=== PATIENT | male | born 1960 | race Caucasian/White ===

== ENCOUNTER 2024-07-28 09:16 | Outpatient (RCR) | payer OTHER, SELFPAY ==
--- NOTE | 2024-07-29 05:57 | CTCCONSULT_ITS ---
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 Patient states that he was f ollowing with Dr. Salcedo and was checked to have iron deficiency. He has multiple investigation pro cedures done and was never found to have a bleeding source but suspected of having bleeding. Patient to take iron but it does not help him much. He was told that he does not absorb iron effici ently. 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 GI: No nausea, vomiting, diarrhea or constipation. CVS: No palpitations or angina pains. Respiratory: No cough, chest pain or shortness of breath. VITAL SIGNS: Date Time PHYSICAL EXAMINATION: Conjunctivae is white. Oral cavity is dry. Chest is clear to auscultation. No wheezes or rales audible. CVS: Rhythm regular, no murmurs or gallops present. Abdomen is soft. No hepatosplenomegaly. Extremities: No pedal edema or cyanosis. LABORATORY DATA: Date Time ASSESSMENT: Iron deficiency anemia PLAN: ??Will get ferritin iron studies reticulocyte count LDH haptoglobin Will get B12 folic acid level Patient's last B12 is on the low normal level Will start patient on IV iron Will start on sublingual B12 ORDERS: Labs ordered include iron studies and nutritional check for B12 and folic acid Advised patient to do labs about 4 to 6 weeks after the iron infusion RTC after the lab check in 4 to 6 weeks after the last iron infusion RETURN TO CLINIC: cc: PCP, Referring: Dayton Low Electronically Signed {Object.Sanct_Date} at {Object.Sanct_Time} {Object.Sanct_ID*PnP.NameFL@M}, {Object.Sanct_ID*PnP.Suffix@U} Patient: FRANC ROBIN : 1960 MR#: [id number] Account: [id number] FOLLOW UP NOTE Page 2 of 4
== END 2024-08-22 23:59 | disposition home or self-care (01) ==
LOC: SCTC 09:16
PROVIDERS: PCP Internal Medicine; Referring Provider Internal Medicine; Visit Provider Internal Medicine Hematology & Oncology
DX: D50.9 Iron deficiency anemia, unspecified (principal)
CPT/HCPCS: 99213; G0463

== ENCOUNTER → 2024-08-26 | Outpatient (CLI) | payer OTHER, SELFPAY ==
[2024-08-26 14:32] LABS: Basophils # (Auto) 0.1 Thou/mm3 (0.0-0.2); Basophils % (Auto) 1 % (0-2.5); Eosinophils # (Auto) 0.3 Thou/mm3 (0.0-0.5); Eosinophils % (Auto) 3 % (0-10); Hematocrit 44.9 % (41.0-53.0); Hemoglobin 15.1 g/dL (13.5-16.0); Immature Granulocytes % (Auto) 0 % (0-0); Immature Granulocytes Auto 0.02 Thou/mm3 (0.00-0.00); Immature Reticulocyte Fraction 11.3 % (2.3-13.4); Lymphocytes # (Auto) 1.7 Thou/mm3 (1.0-4.8); Lymphocytes % (Auto) 21 % (10-50); Mean Corpuscular HGB Conc 33.6 g/dl (31.0-37.0); Mean Corpuscular Hemoglobin 29.2 pg (25.0-35.0); Mean Corpuscular Volume 87 fL (80-100); Monocytes # (Auto) 0.7 Thou/mm3 (0.0-0.8); Monocytes % (Auto) 8 % (0-12); Neutrophils # (Auto) 5.5 Thou/mm3 (1.8-7.7); Neutrophils % (Auto) 67 % (37-80); Nucleated Red Blood Cell % 0 /100 WBC (0); Platelet Count 205 Thou/mm3 (140-440); RDW Standard Deviation 39.8 fL (35.1-43.9); Red Blood Count 5.17 Miln/mm3 (4.50-5.90); Reticulocyte % (Auto) 1.8 % (0.5-1.5); Reticulocyte Absolute Auto 90.5 Biln/L (25.0-75.0); Reticulocyte Hgb Content 33.4 pg (28.0-35.0); White Blood Count 8.3 Thou/mm3 (3.8-10.6)
[2024-08-26 14:51] LABS: LDH (Lactate Dehydrogenase) 186 U/L (120-246)
[2024-08-26 14:55] LABS: Ferritin 11 ng/mL (10.5-307.3); Total Iron Binding Capacity 350 mcg/dL (250-425)
[2024-08-26 14:56] LABS: Folate 12.73 ng/mL (>5.38); Vitamin B12 501 pg/mL (211-911)
[2024-08-26 15:05] LABS: Iron 55 mcg/dL (65-175); Percent Iron Saturation 15 % (20-55); Unsaturated Iron Binding 295 (225-295)
[2024-09-03 06:55] LABS: Haptoglobin* 169 mg/dL (43-212)
== END | disposition home or self-care (01) ==
LOC: SCTO 13:11
PROVIDERS: PCP Internal Medicine; Referring Provider Internal Medicine Hematology & Oncology; Visit Provider Internal Medicine Hematology & Oncology
DX: D50.9 Iron deficiency anemia, unspecified (principal)
CPT/HCPCS: 36415; 82607; 82728; 82746; 83010; 83540; 83550; 83615; 85025; 85046

== ENCOUNTER 2024-09-21 13:25 | Outpatient (RCR) | payer OTHER, SELFPAY | END 2024-09-22 23:59 | disposition home or self-care (01) | LOC: SCTC 13:25 | PROVIDERS: PCP Internal Medicine; Referring Provider Internal Medicine; Visit Provider Internal Medicine Hematology & Oncology | DX: D50.9 Iron deficiency anemia, unspecified (principal) | CPT/HCPCS: 96365; 96366; 96375; J2919; J3490; Q0138 ==

== ENCOUNTER → 2025-03-24 | Outpatient (CLI) | payer OTHER, SELFPAY ==
--- NOTE | 2025-03-24 08:32 | XR_ITS ---
Examination: Shoulder,left, 3 views Technique: Shoulder AP internal rotation, AP external rotation, Y view shoulder, 3 views Exam date and time :March 24, 2025 0845 hours INDICATIONS: Left shoulder pain one year. FINDINGS: Prominent osteopenia. Moderate to advanced narrowing glenohumeral joint No shoulder fracture or dislocation IMPRESSION: Moderate to advanced narrowing glenohumeral joint
== END | disposition home or self-care (01) ==
LOC: CDIM 08:13
PROVIDERS: PCP Internal Medicine; Referring Provider Internal Medicine; Visit Provider Internal Medicine
DX: M25.812 Other specified joint disorders, left shoulder (principal)
CPT/HCPCS: 73030

== ENCOUNTER → 2025-06-24 | Outpatient (CLI) | payer OTHER, SELFPAY ==
--- NOTE | 2025-06-24 13:00 | XR_ITS ---
MRI shoulder, left, without contrast. Date and time: June 24 2025, 1409 hours INDICATIONS: Left shoulder pain beginning August 2023 Technique: Multiple axial, sagittal and coronal sections of the shoulder have been obtained. Siemens high-resolution 1.5 Jo MRI scanner is utilized. Axial fat-suppressed sections, TR 2350, TE 18 T2-weighted coronal fat-saturated images, TR 3500, TE 7100 T1-weighted coronal images, TR 500, TE 15 T2-weighted sagittal fat-saturated images, TR 3500, TE 57 T1-weighted sagittal sections, TR 504, TE 13. Findings: Supraspinatus tendon insertion is intact. Infraspinatus tendon insertion is intact. Subscapularis insertion is intact. Subscapularis bursa is mild. Long head of the biceps is in the bicipital groove. No definite tear of the biceps superior labral anchor is seen. Retraction of the musculotendinous junction of the rotator cuff is not seen . Tendinosis pattern is moderate. Distance between the acromium and humeral head is 2.7 mm Atrophy of the supraspinatus muscle is moderate. Atrophy of the infraspinatus muscle is mild. Sagittal sections demonstrate a horizontal acromion. Acromioclavicular joint demonstrates mild osteoarthritis . Osacromiale is not identified. Fraying and irregularity anterior superior posterior labral margins. Bony glenoid fossa on the sagittal sections does not demonstrate osseous defect. Occult fracture or area of avascular necrosis is not seen. Acromioclavicular joint separation is not visible. Defect in the posterolateral margin of the humeral head is not seen Impression: Rotator cuff intact Significant rotator cuff impingement syndrome Fraying and irregularity anterior superior labral margins
== END | disposition home or self-care (01) ==
LOC: SMRI 12:47
PROVIDERS: PCP Internal Medicine; Referring Provider Internal Medicine; Visit Provider Internal Medicine
DX: M75.102 Unspecified rotator cuff tear or rupture of left shoulder, not specified as traumatic (principal); M25.812 Other specified joint disorders, left shoulder
CPT/HCPCS: 73221

== ENCOUNTER 2025-08-16 14:44 | Inpatient (IN) | payer OTHER, SELFPAY ==
[2025-08-16] VITALS (7 sets, daily range): BP systolic 103–141; BP diastolic 69–85; PULSE 80–119; RESP 17–99; TEMP 36.4–36.8; O2SAT 95–100; BMI 22.1; BMI 22.2
--- NOTE | 2025-08-16 15:29 | XR_ITS ---
Examination: CT abdomen and pelvis without contrast. Coronal 3-D reconstructions. Sagittal 2-D reconstructions. Date and time of exam: August 16, 2025, 1629 hours INDICATIONS: Vomiting blood today CTDI: vol (mGy): 6.91 DLP: (mGycm): 393 Technique: Axial images of the abdomen have been obtained, 3 mm slice thickness Intravenous contrast material has not been administered. Low dose protocols were performed. One or more of the following dose reduction techniques were used; automated exposure control, adjustment of the mA and/or KV according to patient size, use of iterative reconstruction technique. Findings: Large retrocardiac gastric hernia No visualized liver or splenic lesion Tiny gallstones No pancreatic mass or peripancreatic edema Normal adrenal glands Multiple bilateral renal calculi, the largest left kidney 6 mm the largest right kidney 5 mm No hydronephrosis or ureteral calculi Aortic calcification no aneurysmal dilatation 14 mm fat-containing umbilical hernia No pericecal inflammatory change No significant prostatomegaly Intact urinary bladder Normal appendix IMPRESSION: Limited noncontrast study Cholelithiasis, consider hepatobiliary sonography follow-up No definite extrahepatic biliary tract dilatation Negative for pancreatitis Bilateral nonobstructing renal calculi 14 mm fat-containing umbilical hernia Normal appendix No bowel obstruction or diverticulitis
--- NOTE | 2025-08-16 15:29 | PD.EDRME ---
Rapid Medical Screening Exam RME Arrival date/time: 08/16/25 14:44 This is a case of 65-year-old male with history of gastritis came in in the emergency room due due to vomiting of blood worsening of the symptoms this patient decided to start consult here in the emergency room Chief Complaint: Nausea/Vomiting/Diarrhea Time Seen by Provider: 08/16/25 14:46 Vital signs: Vital Signs Temperature 98.3 F 08/16/25 15:24 Pulse Rate 90 08/16/25 15:24 Respiratory Rate 17 08/16/25 15:24 Blood Pressure 141/85 H 08/16/25 15:24 Pulse Oximetry (%) 95 08/16/25 15:24 Oxygen Delivery Method Room Air 08/16/25 15:24 Exam: Abdominal exam benign nonsurgical no guarding no rebound no rigidity mild tenderness on the epigastric Clinical Impression: abdominal pain vomiting of blood
[2025-08-16 16:00] LABS: Basophils # (Auto) 0.1 Thou/mm3 (0.0-0.2); Basophils % (Auto) 1 % (0-2.5); Eosinophils # (Auto) 0.2 Thou/mm3 (0.0-0.5); Eosinophils % (Auto) 2 % (0-10); Hematocrit 34.8 % (41.0-53.0); Hemoglobin 11.4 g/dL (13.5-16.0); Immature Granulocytes Auto 0.04 Thou/mm3 (0.00-0.00); Lymphocytes # (Auto) 1.7 Thou/mm3 (1.0-4.8); Lymphocytes % (Auto) 13 % (10-50); Mean Corpuscular HGB Conc 32.8 g/dl (31.0-37.0); Mean Corpuscular Hemoglobin 28.0 pg (25.0-35.0); Mean Corpuscular Volume 86 fL (80-100); Monocytes # (Auto) 1.0 Thou/mm3 (0.0-0.8); Monocytes % (Auto) 8 % (0-12); Neutrophils # (Auto) 9.6 Thou/mm3 (1.8-7.7); Neutrophils % (Auto) 76 % (37-80); Nucleated Red Blood Cell # 0.00 Thou/mm3 (0.00-0.00); Nucleated Red Blood Cell % 0 /100 WBC (0); Platelet Count 298 Thou/mm3 (140-440); RDW Standard Deviation 41.7 fL (35.1-43.9); Red Blood Count 4.07 Miln/mm3 (4.50-5.90); White Blood Count 12.7 Thou/mm3 (3.8-10.6)
[2025-08-16 16:26] LABS: Collection Type, Urine Clean Catch; Squamous Epithelial Cell,Urine 0 /hpf (0-5)
[2025-08-16 16:52] LABS: Anion Gap 10 (7-16); Blood Urea Nitrogen 27 mg/dL (9-23); Carbon Dioxide 21.8 mMol/L (20.0-31.0); Chloride 108 mMol/L (98-107); Creatinine (Component) 1.0 mg/dL (0.6-1.3); Potassium 4.0 mMol/L (3.4-5.1); Sodium 140 mMol/L (136-145)
[2025-08-16 16:53] LABS: Alanine Aminotransferase 17 U/L (10-49); Albumin, Serum 4.5 gm/dL (3.4-4.8); Alkaline Phosphatase 106 U/L (46-116); Aspartate Amino Transferase 22 U/L (0-34); BUN/Creatinine Ratio 27 Ratio (12-20); Bilirubin,Total 0.6 mg/dL (0.3-1.2); Calcium 8.9 mg/dL (8.3-10.6); Calcium (Corrected) 8.9 mg/dL (8.5-10.1); Estimated Creatinine Clearance 74.9 mL/min (>60); Glucose 125 mg/dL (74-106); Lipase 26 U/L (12-53); Osmolality,Calculated 285 (275-295); eGFR > 60 See Note
[2025-08-16 17:16] LABS: Bilirubin,Urine Negative (Negative); Blood,Urine Negative (Negative); Clarity,Urine Clear (Clear/Hazy); Color,Urine Lt-Yellow (Lt Yel-Yel); Glucose, Urine Negative (Negative); Ketones,Urine Trace (Negative); Leukocyte Esterase,Urine Negative (Negative); Nitrite,Urine Negative (Negative); PH,Urine 5.5 (5.0-7.0); Protein,Urine Negative (Neg - Trace); RBC,Urine 1 /hpf (0-3); Specific Gravity,Urine 1.025 (1.001-1.035); Urobilinogen,Urine Negative mg/dL (0.0-1.0); WBC,Urine < 1 /hpf (0-5)
[2025-08-16 17:27] LABS: Albumin/Globulin Ratio 2.1 (1.2-2.2); Globulin 2.1 gm/dL (2.3-3.5); Total Protein 6.6 gm/dL (5.7-8.2)
--- NOTE | 2025-08-16 19:32 | EDNOTE_ITS ---
Nausea/Vomit./Diarrhea-RME/HPI General Chief complaint: Nausea/Vomiting/Diarrhea Stated complaint: VOMITING BLACK, STOOL BLACK Time Seen by Provider: 08/16/25 14:46 Arrival date/time: 08/16/25 14:44 RME / HPI RME / HPI Narrative: 08/16/25 14:44 This is a case of 65-year-old male with history of gastritis came in in the emergency room due due to vomiting of blood worsening of the symptoms this patient decided to start consult here in the emergency room Dr. Gonzalez?[facility] Main ED Evaluation: 65yo male with a history of CAD s/p 5 stents, CVA, MO, HTN, HLD, celiac disease, iron deficiency anemia presents to the ED for complaints of black vomiting and stools since last night. Patient reports feeling lightheaded when he stands up and more fatigued than normal. Patient was seen at the ED in [place] this morning and was going to be transferred to a higher [id number] due to not having GI services, but since the patient was stable, left and drove back here today to come in for further evaluation. Patient denies any fever, chills, or any other associated symptoms. NKA. Related Data Home Medications ?Medication ?Instructions ?Recorded ?Confirmed aspirin 81 mg tablet,delayed 81 mg PO QDAY 03/29/20 release atorvastatin 80 mg tablet 80 mg PO QDAY 03/29/2007/13 ezetimibe 10 mg tablet 10 mg PO QDAY 03/29/2007/13 metoprolol succinate 25 mg 25 mg PO QDAY 03/29/2006/24 tablet,extended release 24 hr topiramate 25 mg tablet 25 mg PO HS 03/29/20 2 Previous Rx's ?Medication ?Instructions ?Recorded pantoprazole 40 mg tablet,delayed 40 mg PO QDAY #30 ta bs 04/02/20 release Allergies Allergy/AdvReac Type Severity Reaction Status Date / Time No Known Allergies Allergy Verified 08/16/25 14:49 Review of Systems Review of Systems Systems Reviewed: All systems reviewed, normal except as documented Past Medical History Past Medical History NEUROLOGIC: Positive Cerebrovascular Accident (2017) and Migraine; Negative Seizures CARDIAC: Positive Myocardial Infarction; Negative Congestive Heart Failure RESPIRATORY: Positive Bronchitis; Negative Chronic Obstructive Pulmonary Disease (COPD) GASTROINTESTINAL: Positive Celiac Disease, Gastrointestinal Bleed and Gastroesophageal Reflux Disease GENITOURINARY: Negative Genitourinary Disorders or Renal Disease MUSCULOSKELETAL: Negative Musculoskeletal Disorders ENDOCRINE: Negative Diabetes Mellitus Type 1 or Diabetes Mellitus Type 2 HEMATOLOGIC: Positive Anemia OTHER HISTORY: Positive Blood Transfusions; Negative Blood Transfusion Reaction or Anesthesia Reactions Surgical History SURGICAL: Positive Coronary Stent Social History SMOKING STATUS: Never smoker SUBSTANCE USE: does not use ED Exam Narrative Physical exam: Generally patient is alert appearing younger than stated age but no obvious distress, heart regular rate and rhythm, lungs clear to auscultation equal bilaterally, abdomen soft bowel sounds present nondistended epigastric abdominal tenderness without rebound, skin is cool pale and dry, neurologic exam shows [place] Coma Scale of 15 Course Quality Measures none Orders Category Date Time Status EKG (ED ONLY) *Do not use* NOW Care 08/16/25 19:[address] abdomen pelvis wo con Stat Exams 08/16/25 15:29 Completed EKG (ED Only) Stat Exams 08/16/25 19:43 Draft CBC Stat Lab 08/16/25 15:32 Completed Comprehensive Metabolic Panel Stat Lab 08/16/25 15:32 Completed Lipase Stat Lab 08/16/25 15:32 Completed Troponin I Stat Lab 08/16/25 15:32 Completed Urinalysis Stat Lab 08/16/25 16:10 Completed Pantoprazole Inj [Protonix Inj] Med 08/16/25 20:53 Once 40 mg IVP X1 ONE Vital Signs Vital signs: Vital Signs Temperature 98.3 F 08/16/25 15:24 Pulse Rate 90 08/16/25 15:24 Respiratory Rate 17 08/16/25 15:24 Blood Pressure 141/85 H 08/16/25 15:24 Pulse Oximetry (%) 95 08/16/25 15:24 Oxygen Delivery Method Room Air 08/16/25 15:24 Nausea/Vomiting/Diarrhea MDM Narrative MDM Narrative:: Scribe Attestation: 08/16/25 Nhung Hendrickson am scribing for and in the presence of Dr. Gonzalez. Patient had a rectal exam which was reportedly guaiac positive at an outside hospital today. Hemoglobin at that outside hospital today was 10. Today it is 11.4. Platelet count is normal. Patient has a history of a bleeding gastric ulcer and gastritis in the past. Hemoglobin is lower tonight than when it was approximately 11 months ago. I discussed this case with Dr. Irving who wishes for the patient to be admitted for the upper GI bleed. Patient does have a history of coronary artery disease with multiple stents. He is off of the aspirin at this time. EKG showed normal sinus rhythm at a rate of 92 with Q waves in the septal leads as well as in leads III and aVF. Troponin is not elevated. Patient was given Protonix 40 mg IV. Case was discussed with the hospitalist. Patient data External records reviewed:: [facility] previous records (Per chart review, patient was admitted here on 07/13/22 for STEMI.) Clinical information provided by:: patient Social determinants that could affect healthcare access:: none Patient has the following chronic illnesses:: CAD s/p 5 stents, CVA, MO, HTN, HLD, celiac disease, iron deficiency anemia How is presenting disease/condition affected by chronic disease/condition?: uneffected by Evaluation data The following diagnostics were reviewed and interpreted by me:: lab results and radiology exam(s) Lab and/or radiology exams considered but not ordered:: none Interpretation Summary: [facility] Report Signed Patient: FRANC ROBIN. Record#: [id number] Birthdate: 1960 Age/Sex: 65 / M Location: [facility] Attending Dr: Ordering Physician: Sejal Hankins Date of Service: 08/16/25 Procedure(s): CT abdomen pelvis wo con Accession Number(s): [id number] cc: Dayton Low MD; Castro Gauthier MD; Sejal Hankins~ Examination: CT abdomen and pelvis without contrast. Coronal 3-D reconstructions. Sagittal 2-D reconstructions. Date and time of exam: August 16, 2025, 1629 hours INDICATIONS: Vomiting blood today CTDI: vol (mGy): 6.91 DLP: (mGycm): 393 Technique: Axial images of the abdomen have been obtained, 3 mm slice thickness Intravenous contrast material has not been administered. Low dose protocols were performed. One or more of the following dose reduction techniques were used; automated exposure control, adjustment of the mA and/or KV according to patient size, use of iterative reconstruction technique. Findings: Large retrocardiac gastric hernia No visualized liver or splenic lesion Tiny gallstones No pancreatic mass or peripancreatic edema Normal adrenal glands Multiple bilateral renal calculi, the largest left kidney 6 mm the largest right kidney 5 mm No hydronephrosis or ureteral calculi Aortic calcification no aneurysmal dilatation 14 mm fat-containing umbilical hernia No pericecal inflammatory change No significant prostatomegaly Intact urinary bladder Normal appendix IMPRESSION: Limited noncontrast study Cholelithiasis, consider hepatobiliary sonography follow-up No definite extrahepatic biliary tract dilatation Negative for pancreatitis Bilateral nonobstructing renal calculi 14 mm fat-containing umbilical hernia Normal appendix No bowel obstruction or diverticulitis Dictated By: Castro Gauthier MD Signed By: <Electronically signed by Castro Gauthier MD in OV> 08/16/25 1712 Medications / Prescriptions Medications / Prescriptions considered but not ordered:: none Medication administrations:: Medication Administration History Pantoprazole Sodium (Pantoprazole Inj 40 Mg Vial) 40 mg IVP X1 ONE Stop: 08/16/25 20:54 see above, if any Consultations Consultation(s) initiated? (list below): Yes Diagnosis Nausea Differential Diagnosis: other (See MDM) Most likely diagnosis given after review of the tests above:: see clinical impression below Admission Indicated Admission indicated?: indicated Admission Request Was there a request for admission?: Yes Admission Attestation Admission request attestation: Discussed case with [] from Hospitalist service regarding admission. Discussed patients ED course, exam findings, labs, and radiology results. The Hospitalist [agrees,declines] to accept the patient for admission. Disposition Plan Disposition Plan: Admit Discharge Plan Plan Patient Disposition: Admit Acute Care w/in Hospital Prescriptions/Referrals Prescriptions/Med Rec: No Action atorvastatin 80 mg tablet 80 mg PO QDAY Patient Comments: TAKE 1 TABLET BY MOUTH EVERY DAY topiramate 25 mg tablet 25 mg PO HS Patient Comments: TAKE 1 TABLET BY MOUTH EVERY DAY aspirin 81 mg tablet,delayed release (DR/EC) 81 mg PO QDAY Patient Comments: TAKE 1 TABLET BY MOUTH EVERY DAY metoprolol succinate 25 mg tablet extended release 24 hr 25 mg PO QDAY Patient Comments: TAKE 1 TABLET BY MOUTH EVERY DAY ezetimibe 10 mg tablet 10 mg PO QDAY Patient Comments: TAKE 1 TABLET BY MOUTH EVERY DAY pantoprazole 40 mg Tablet,Delayed Release (Dr/Ec) 40 mg PO QDAY Qty: 30 0RF Referrals: Dayton Low MD [Primary Care Provider] - In 1 week Problem List Clinical Impression: UGIB (upper gastrointestinal bleed), History of CAD (coronary artery disease) Patient/Caregiver Discharge Instructions Print Language: [place] Islander Stand Alone Forms: Becki Award Info., Patient Portal Info Letter
--- NOTE | 2025-08-16 19:43 | EKG_ITS ---
[facility] Test Date: 2025-08-16 Pat Name: FRANC ROBIN Department: Room: - Gender: Male [employer]: : 1960 Requested By: Jonas Chavez Order Number: [id number] Reading MD: Jonas Chavez Measurements Intervals [place] Rate: 92 P: 38 IL: 169 QRS: -18 QRSD: 93 T: 29 QT: 332 QTc: 413 Interpretive Statements SINUS RHYTHM SEPTAL MYOCARDIAL INFARCTION , PROBABLY OLD [40+ ms Q WAVE IN V1/V2] INFERIOR MYOCARDIAL INFARCTION , OF INDETERMINATE AGE [40+ ms Q WAVE AND/OR ST/T ABNORMALITY IN II/aVF] Compared to ECG 07/13/2022 11:58:38 Short [place] interval no longer present Myocardial infarct finding still present /store/S0/[id number]/ecg/[id number].pdf
[2025-08-16 20:25] LABS: Troponin I < 0.020 ng/mL (0.0-0.045)
--- NOTE | 2025-08-16 21:41 | PD.IMCONS ---
HPI Data of Consult Primary Care Provider: Dayton Low MD Consult Narrative Reason for consult: Melena, coffee-ground hematemesis History of present illness: 65 years old male presented to the hospital with melanotic stools and also bout of hematemesis Patient does have a history of iron deficiency anemia and got an iron transfusion in the past and does have a history of bleeding peptic ulcer disease requiring endoscopic intervention No bright red bleeding per rectum patient does have a history of Coronary artery disease status post PCI cc:: cc: Review of Systems Review of Systems Systems Reviewed: All systems reviewed, normal except as documented Meds Home Medications and Allergies Home Medications ?Medication ?Instructions ?Recorded ?Confirmed ?Type aspirin 81 mg tablet,delayed 81 mg PO QDAY 03/29/20 07/13/22 History release atorvastatin 80 mg tablet 80 mg PO QDAY 03/29/20 07/13/22 History ezetimibe 10 mg tablet 10 mg PO QDAY 03/29/20 07/13/22 History metoprolol succinate 25 mg 25 mg PO QDAY 03/29/20 07/13/22 History tablet,extended release 24 hr topiramate 25 mg tablet 25 mg PO HS 03/29/20 07/13/22 History Allergies Allergy/AdvReac Type Severity Reaction Status Date / Time No Known Allergies Allergy Verified 08/16/25 14:49 Exam Vital Signs Temp Pulse Resp BP Pulse Ox O2 Del Method 97.5 F 99 19 118/78 99 Room Air 08/16/25 20:08 08/16/25 20:08 08/16/25 20:08 08/16/25 20:08 08/16/25 20:08 08/16/25 19:16 Constitutional Comments: Alert oriented Routine Respiratory Exam Comments: Normal to auscultation Routine Abdominal Exam Comments: Soft nontender Results Labs 08/16/25 15:32 08/16/25 15:32 Labs: Short CBC 08/16/25 Range/Units 15:32 WBC 12.7 H (3.8-10.6) Thou/mm3 Hgb 11.4 L (13.5-16.0) g/dL Hct 34.8 L (41.0-53.0) % Plt Count 298 (140-440) Thou/mm3 BMP 08/16/25 15:32 Sodium 140 Potassium 4.0 Chloride 108 H Carbon Dioxide 21.8 BUN 27 H Creatinine 1.0 Glucose 125 H Calcium 8.9 Cardiac Enzymes 08/16/25 Range/Units 15:32 Troponin I < 0.020 (0.0-0.045) ng/mL Liver Function 08/16/25 Range/Units 15:32 Total Bilirubin 0.6 (0.3-1.2) mg/dL AST 22 (0-34) U/L ALT 17 (10-49) U/L Alkaline Phosphatase 106 (46-116) U/L Albumin 4.5 (3.4-4.8) gm/dL Urine 08/16/25 Range/Units 16:10 Urine Color Lt-Yellow (Lt Yel-Yel) Urine Clarity Clear (Clear/Hazy) Urine pH 5.5 (5.0-7.0) Ur Specific [place] 1.025 (1.001-1.035) Urine Protein Negative (Neg - Trace) Urine Glucose (UA) Negative (Negative) Assessment and Plan Additional Assessment & Plan Additional Plan: # Acute GI bleed in the form of melena and possible hematemesis Chronic history of iron deficiency anemia with a previous history of GI bleed from peptic ulcer disease requiring intervention Suggestions Serial CBC IV Protonix Consent obtained for fiberoptic esophagogastroduodenoscopy with possible biopsy possible therapeutic intervention under intravenous moderate sedation scheduled for tomorrow Clear liquid diet till 10 AM tomorrow then n.p.o. Other medical problems include coronary artery disease status post PCI hyperlipidemia thank you very much for the opportunity to participate in the care of this patient
--- NOTE | 2025-08-16 22:14 | PD.RESHP ---
Documentation for date of: 08/16/25 [facility] History of Present Illness Chief complaint: vomiting blood History of present illness: Sterling Jensen is 65 yr male with PMH of CAD s/p 5 stents (2016, 2020), migraines, two ischemic stroke 2016, HTN, HLD, celiac disease, iron deficiency anemia, previous GI bleed presenting to ED due to coffee ground emesis. Patient's was at bedside. Family was taking a trip in [facility] yesterday when he had one episode of projectile vomiting coffee ground emesis along with melena. Endorses a similar episode like this last month. Family initially went to [facility]. However, was not admitted due to lack of GI services. His Hb at that time was around 10. He has been feeling weak, decreased appetite and water intake past few days. Patient sees Dr. Izaguirre who stopped Plavix in 2021. Currently just on aspirin for blood thinner in setting of his CAD and stroke. Also saw Dr. Ornelas in 07/2024 for IV iron put does not appear to be on any oral supplements. In ED, he was tachycardic 119 but improved with fluids. Other vitals stable. WBC 12.7, Hb 11.5 (baseline around 9.5), MCV 86. BUN 27, Cr 1.0. Troponins negative, EKG sinus rhytm with rate 92. CT A/P benign. GI was consulted. Patient admitted for mgmt upper GI bleed. PMH: as noted above PSH: unspecified GI procedure with EGD Famhx: father from stroke, mother with skin cancer from unknown cause. Brother has prostated cancer in remission. Social: lives in [place] with , denies smoking, denies drinking Allergies: NKDA Meds: aspirin 81 mg daily, atorvastatin 80 daily, ezetimibe 10mg HS, metoprolol succinate 25mg, nitro prn, topiramate 25mg, Fioricet Review of Systems Review of Systems Systems Reviewed: All systems reviewed, normal except as documented Exam Vital Signs Temp Pulse Resp BP Pulse Ox O2 Del Method 98.1 F 80 18 111/72 100 Room Air 08/16/25 21:58 08/16/25 21:58 08/16/25 21:58 08/16/25 21:58 08/16/25 21:58 08/16/25 21:58 Narrative Exam General: Alert and oriented x3. No acute distress, cooperative HEENT: NCAT, No JVD noted. Mucosa dry. Pupils are equal and reactive to light bilaterally Cardiovascular: Normal S1 and S2. Tachycardic rate and rhythm. Respiratory: Lungs are clear to auscultation bilaterally. No wheezing or crackles heard. Abdomen: Soft, nontender, not distended, normal bowel sounds. Skin: Warm to touch, dry, no rashes noted Musculoskeletal: No gross injuries. Able to move all 4 extremities. No pitting edema Neuro: Alert and oriented x3. No focal neuro deficits. Psych: Normal affect and mood Results: Labs 08/16/25 15:32 08/16/25 15:32 Labs: Short CBC 08/16/25 Range/Units 15:32 WBC 12.7 H (3.8-10.6) Thou/mm3 Hgb 11.4 L (13.5-16.0) g/dL Hct 34.8 L (41.0-53.0) % Plt Count 298 (140-440) Thou/mm3 BMP 08/16/25 15:32 Sodium 140 Potassium 4.0 Chloride 108 H Carbon Dioxide 21.8 BUN 27 H Creatinine 1.0 Glucose 125 H Calcium 8.9 Cardiac Enzymes 08/16/25 Range/Units 15:32 Troponin I < 0.020 (0.0-0.045) ng/mL Liver Function 08/16/25 Range/Units 15:32 Total Bilirubin 0.6 (0.3-1.2) mg/dL AST 22 (0-34) U/L ALT 17 (10-49) U/L Alkaline Phosphatase 106 (46-116) U/L Albumin 4.5 (3.4-4.8) gm/dL Urine 08/16/25 Range/Units 16:10 Urine Color Lt-Yellow (Lt Yel-Yel) Urine Clarity Clear (Clear/Hazy) Urine pH 5.5 (5.0-7.0) Ur Specific [place] 1.025 (1.001-1.035) Urine Protein Negative (Neg - Trace) Urine Glucose (UA) Negative (Negative) Quality Measures Quality Measures VTE prophylaxis Medications Home Medications and Allergies Home Medications ?Medication ?Instructions ?Recorded ?Confirmed ?Type aspirin 81 mg tablet,delayed 81 mg PO QDAY 03/29/20 08/16/25 History release atorvastatin 80 mg tablet 80 mg PO HS 03/29/20 08/16/25 History ezetimibe 10 mg tablet 10 mg PO HS 03/29/20 08/16/25 History metoprolol succinate 25 mg 25 mg PO QDAY 03/29/20 08/16/25 History tablet,extended release 24 hr topiramate 25 mg tablet 25 mg PO HS 03/29/20 08/16/25 History nitroglycerin 0.4 mg sublingual 0.4 mg buccal [id number] PRN chest 08/16/25 08/16/25 History tablet pain Allergies Allergy/AdvReac Type Severity Reaction Status Date / Time No Known Allergies Allergy Verified 08/16/25 14:49 Visit Medications Acetaminophen (Acetaminophen 325 Mg Tablet) 650 mg PO Q6H PRN PRN Reason: Fever >100.4 or pain 1-3 Stop: 09/15/25 21:59 Sodium Chloride (Ns) 1,000 mls @ 100 mls/hr IV .Q10H KENNEDY Stop: 08/17/25 17:59 Ondansetron HCl (Ondansetron Inj 2 Mg/Ml Inj 2 Ml) 4 mg IVP Q6H PRN; Protocol PRN Reason: NAUSEA OR VOMITING Stop: 09/15/25 22:04 Pantoprazole Sodium (Pantoprazole Inj 40 Mg Vial) 40 mg IVP X1 ONE Stop: 08/16/25 22:06 Pantoprazole Sodium (Pantoprazole 40 Mg Tablet) 40 mg PO Q12HR KENNEDY Stop: 09/16/25 09:59 Sennosides (Senna Tablet) 1 tab PO QDAY PRN; Protocol PRN Reason: constipation Stop: 09/15/25 22:04 Discontinued Medications Pantoprazole Sodium (Pantoprazole Inj 40 Mg Vial) 40 mg IVP X1 ONE Stop: 08/16/25 20:54 Last Admin: 08/16/25 21:13 Dose: 40 mg Assessment & Plan Plan Sterling Jensen is 65 yr male with PMH of CAD s/p 5 stents (2016, 2020), migraines, two ischemic stroke 2016, HTN, HLD, celiac disease, iron deficiency anemia, previous GI bleed presenting to ED due to coffee ground emesis. He had similiar episode last month. GI was consulted. Admitting patient for mgmt of upper GI bleed. #Upper GI bleed #Hematemesis Has tachycardia and elevated urea supporting dx. One episode of projectile coffee ground emesis yesterday. Went to [facility] where Hb was around 10. No GI services were available so family came to [facility]. Hb 11.5 (baseline around 9.5), MCV 86, Hct 35. BUN 27, Cr 1.0. Decreased fluid and food intake since 2 days. Also endorses melena since 1-2 days. Currently on apirin for CAD/stroke hx. -GI consulted, appreciate recommendations -IV pantoprazole 40mg BID -IV fluids NS 2L maintainence -CLD for EGD tomorrow -ferritin levels -iron pannel -hold blood thinners -type and screen ordered -transfuse if Hb <8 (patient is high risk population due to CAD hx so cuttoff for Hb is 8) #CAD Follows with Dr. Izaguirre. Last stent was placed 1 year ago. Has total of 5 stents after two episodes of CT. Currently on aspirin, atorvastain, and ezetimibe 10mg. EKG sinus rhythm with rate 92. Troponins negative. -continue asa as noted above -lipid pannel -resume meds after EGD #Migraines No current complaint. Takes topiramate and Fioricet. [facility]. -resume as needed #Leukocytosis WBC 12.7. No infection source, no fever. Likely reactive in setting of GI bleed. -CTM #Previous CVA Ischemic stroke occured in 2017 while undergoing stent placement. No residual deficits. Takes atrovastatin 80mg and aspirin 81mg. -resume after EGD Health maintenance: Dispo: tele, EGD in AM FEN: CLD, npo at 10AM DVT prophylaxis: SCD CODE STATUS: Full code The patient's management plan was discussed with my attending physician Dr. Amanda. Heavenly Low, PGY-2 Attending Provider Attestation/Addendum After examination of the patient and review of the clinical data I feel that this patient needs admission to the hospital for further treatment/evaluation. Plan of care discussed with patient and is in agreement. I Janee Amanda MD, attest that I was physically present for beck portions of evaluation, and examined patient, labs and imagings and plan of care were discussed with IM residents team, and I agree with the findings and plans documented above.
[2025-08-16] MEDS: SODIUM CHLORIDE 0.9% 1000 ML 1,000 ML 100 ML IV (22:37)
[2025-08-17] VITALS (19 sets, daily range): BP systolic 90–139; BP diastolic 60–82; PULSE 68–92; RESP 10–99; TEMP 36.1–36.9; O2SAT 96–100
[2025-08-17 05:23] LABS: Basophils # (Auto) 0.1 Thou/mm3 (0.0-0.2); Basophils % (Auto) 2 % (0-2.5); Eosinophils # (Auto) 0.2 Thou/mm3 (0.0-0.5); Eosinophils % (Auto) 4 % (0-10); Hematocrit 27.3 % (41.0-53.0); Hemoglobin 8.9 g/dL (13.5-16.0); Immature Granulocytes Auto 0.03 Thou/mm3 (0.00-0.00); Lymphocytes # (Auto) 1.4 Thou/mm3 (1.0-4.8); Lymphocytes % (Auto) 21 % (10-50); Mean Corpuscular HGB Conc 32.6 g/dl (31.0-37.0); Mean Corpuscular Hemoglobin 28.0 pg (25.0-35.0); Mean Corpuscular Volume 86 fL (80-100); Monocytes # (Auto) 0.7 Thou/mm3 (0.0-0.8); Monocytes % (Auto) 11 % (0-12); Neutrophils # (Auto) 4.2 Thou/mm3 (1.8-7.7); Neutrophils % (Auto) 63 % (37-80); Nucleated Red Blood Cell # 0.00 Thou/mm3 (0.00-0.00); Nucleated Red Blood Cell % 0 /100 WBC (0); Platelet Count 207 Thou/mm3 (140-440); RDW Standard Deviation 41.9 fL (35.1-43.9); Red Blood Count 3.18 Miln/mm3 (4.50-5.90); White Blood Count 6.6 Thou/mm3 (3.8-10.6)
[2025-08-17 08:03] LABS: Alanine Aminotransferase 13 U/L (10-49); Albumin, Serum 3.5 gm/dL (3.4-4.8); Albumin/Globulin Ratio 2.1 (1.2-2.2); Anion Gap 12 (7-16); Aspartate Amino Transferase 19 U/L (0-34); BUN/Creatinine Ratio 24 Ratio (12-20); Bilirubin,Total 0.4 mg/dL (0.3-1.2); Blood Urea Nitrogen 19 mg/dL (9-23); Calcium 8.5 mg/dL (8.3-10.6); Calcium (Corrected) 8.9 mg/dL (8.5-10.1); Carbon Dioxide 21.1 mMol/L (20.0-31.0); Chloride 109 mMol/L (98-107); Creatinine (Component) 0.8 mg/dL (0.6-1.3); Estimated Creatinine Clearance 94.2 mL/min (>60); Globulin 1.7 gm/dL (2.3-3.5); Glucose 101 mg/dL (74-106); Magnesium 1.4 mg/dL (1.6-2.6); Osmolality,Calculated 285 (275-295); Phosphorous 3.0 mg/dL (2.4-5.1); Potassium 3.6 mMol/L (3.4-5.1); Sodium 142 mMol/L (136-145); Total Protein 5.2 gm/dL (5.7-8.2); eGFR > 60 See Note
[2025-08-17 08:32] LABS: Alkaline Phosphatase 81 U/L (46-116); Cardiac Risk Estimate 3.8 RATIO (4.0-6.7); Cholesterol 90 mg/dL (132-200); HDL Cholesterol 24 mg/dL (40-60); LDL Cholesterol,Calculated 32 mg/dL (0-130); Triglycerides 169 mg/dL (30-150)
--- NOTE | 2025-08-17 08:43 | ESPR_ITS ---
<Statement entered by Rahul Damon MD - 08/17/25 15:53> Patient seen and examined at bedside. I discussed and supervised with the electrical intern physician who took care of this patient. I personally saw and examined the patient. I agree with most of the assessment and plan. Pending EGD. Hemoglobin slightly downtrending, will monitor. Resumed appropriate home meds, holding aspirin. Plan of care discussed with attending Dr. Rahul Damon MD PGY-2 Documentation for date of: 08/17/25 Subjective Subjective Interval history: 75-year-old male with past medical history of CAD status post 5 stent (2016,? 2020), migraine, 2 ischemic stroke 2016, HTN, HLD, celiac disease, iron deficiency anemia, history of bleeding gastric ulcer, gastritis presents with coffee-ground emesis and melena.? Admitted for upper GI bleed workup. GI, Dr. Irving, consulted, appreciate recs: IV Protonix, clear liquid diet then n.p.o. for EGD today. Patient reported vomiting black substance and black stool Saturday night/early Saturday morning. Reported the same episode 1 month ago, PCP advised to return to ED if another episode happened. Patient reported was lightheaded with chest burning and elevated heart rate and palpitation yesterday morning. Patient fell a lot better, the symptoms resolved this morning. Reported history of following Dr. Irving outpatient in 2019 and switched to another GI in [place] and now back to [place]. Reported history of sclerotherapy for internal hemorrhoid in 2019, last bright red blood per rectum was last year. Per patient, history of ulcer in small intestine that required cauterization, Hgb was 4 at that time. Patient also reported a patient has been following Dr. Ma for 6 episodes of feraheme. Denied dizziness, headache, fever, chill, chest pain, palpitation. Exam Vital Signs Temp Pulse Resp BP Pulse Ox O2 Del Method 97.3 F 82 12 90/60 97 Room Air 08/17/25 04:00 08/17/25 04:00 08/17/25 04:00 08/17/25 04:00 08/17/25 04:00 08/17/25 04:00 Narrative Exam General: Alert and oriented x3. No acute distress, cooperative HEENT: NCAT, No JVD noted. Mucosa dry. Pupils are equal and reactive to light bilaterally Cardiovascular: Normal S1 and S2. Tachycardic rate and rhythm. Respiratory: Lungs are clear to auscultation bilaterally. No wheezing or crackles heard. Abdomen: Soft, nontender, not distended, normal bowel sounds. Skin: Warm to touch, dry, no rashes noted Musculoskeletal: No gross injuries. Able to move all 4 extremities. No pitting edema Neuro: Alert and oriented x3. No focal neuro deficits. Psych: Normal affect and mood Objective Labs 08/18/25 04:27 08/18/25 04:27 Labs: Laboratory Results - last 24 hr 08/16/25 08/16/25 08/17/25 15:32 16:10 01:01 WBC 12.7 H RBC 4.07 L Hgb 11.4 L Hct 34.8 L MCV 86 MCH 28.0 MCHC 32.8 RDW Std Deviation 41.7 Plt Count 298 Neut % (Auto) 76 Lymph % (Auto) 13 [place] % (Auto) 8 Eos % (Auto) 2 Baso % (Auto) 1 Neut # (Auto) 9.6 H Lymph # (Auto) 1.7 [place] # (Auto) 1.0 H Eos # (Auto) 0.2 Baso # (Auto) 0.1 Immature Gran # (Auto) 0.04 H Absolute Nucleated RBC 0.00 Immature Gran % 0 Nucleated RBC % 0 Sodium 140 Potassium 4.0 Chloride 108 H Carbon Dioxide 21.8 Anion Gap 10 BUN 27 H Creatinine 1.0 Estim Creat Clear Calc 74.9 eGFR > 60 BUN/Creatinine Ratio 27 H Glucose 125 H Calculated Osmolality 285 Calcium 8.9 Corrected Calcium 8.9 Phosphorus Magnesium Total Bilirubin 0.6 AST 22 ALT 17 Alkaline Phosphatase 106 Troponin I < 0.020 Total Protein 6.6 Albumin 4.5 Globulin 2.1 L Albumin/Globulin Ratio 2.1 Lipase 26 Ur Collection Type Clean Catch Urine Color Lt-Yellow Urine Clarity Clear Urine pH 5.5 Ur Specific [place] 1.025 Urine Protein Negative Urine Glucose (UA) Negative Urine Ketones Trace Urine Blood Negative Urine Nitrite Negative Urine Bilirubin Negative Urine Urobilinogen (Auto) Negative Ur Leukocyte Esterase Negative Urine RBC 1 Urine WBC < 1 Ur Squamous Epith Cells 0 Urine Bacteria None Blood Type A Negative Antibody Screen NEGATIVE Blood Bank Wristband ID Yes 08/17/25 04:30 WBC 6.6 D RBC 3.18 L Hgb 8.9 L D Hct 27.3 L MCV 86 MCH 28.0 MCHC 32.6 RDW Std Deviation 41.9 Plt Count 207 D Neut % (Auto) 63 Lymph % (Auto) 21 [place] % (Auto) 11 Eos % (Auto) 4 Baso % (Auto) 2 Neut # (Auto) 4.2 Lymph # (Auto) 1.4 [place] # (Auto) 0.7 Eos # (Auto) 0.2 Baso # (Auto) 0.1 Immature Gran # (Auto) 0.03 H Absolute Nucleated RBC 0.00 Immature Gran % 1 H Nucleated RBC % 0 Sodium 142 Potassium 3.6 Chloride 109 H Carbon Dioxide 21.1 Anion Gap 12 BUN 19 Creatinine 0.8 Estim Creat Clear Calc 94.2 eGFR > 60 BUN/Creatinine Ratio 24 H Glucose 101 Calculated Osmolality 285 Calcium 8.5 Corrected Calcium 8.9 Phosphorus 3.0 Magnesium 1.4 L Total Bilirubin 0.4 AST 19 ALT 13 Alkaline Phosphatase Troponin I Total Protein 5.2 L Albumin 3.5 D Globulin 1.7 L Albumin/Globulin Ratio 2.1 Lipase Ur Collection Type Urine Color Urine Clarity Urine pH Ur Specific [place] Urine Protein Urine Glucose (UA) Urine Ketones Urine Blood Urine Nitrite Urine Bilirubin Urine Urobilinogen (Auto) Ur Leukocyte Esterase Urine RBC Urine WBC Ur Squamous Epith Cells Urine Bacteria Blood Type Antibody Screen Blood Bank Wristband ID Quality Measures Quality Measures VTE prophylaxis Assessment & Plan Assessment Current Active Medications: Generic Name Dose Route Start Last Admin Trade Name Freq PRN Reason Stop Dose Admin Acetaminophen 650 mg 08/16/25 22:00 Acetaminophen 325 Mg Tablet PO 09/15/25 21:59 Q6H PRN Fever >100.4 or pain 1-3 Magnesium Sulfate 2 gm in 50 mls @ 25 mls/hr 08/17/25 08:39 Magnesium Sulfate Ivpb IV 08/17/25 10:38 X1 ONE Ondansetron HCl 4 mg 08/16/25 22:05 Ondansetron Inj 2 Mg/Ml Inj 2 Ml IVP 09/15/25 22:04 Q6H PRN NAUSEA OR VOMITING Protocol Pantoprazole Sodium 40 mg 08/17/25 08:15 08/17/25 08:35 Pantoprazole Inj 40 Mg Vial IVP 09/16/25 08:14 Not Given BID KENNEDY Sennosides 1 tab 08/16/25 22:05 Senna Tablet PO 09/15/25 22:04 QDAY PRN constipation Protocol Plan Sterling Jensen is 65 yr male with PMH of CAD s/p 5 stents (2016, 2020), migraines, two ischemic stroke 2017, HTN, HLD, celiac disease, iron deficiency anemia, previous GI bleed presenting to ED due to coffee ground emesis. He had similiar episode last month. GI was consulted. Admitting patient for mgmt of upper GI bleed. #Upper GI bleed #Hematemesis Has tachycardia and elevated urea supporting dx. One episode of projectile coffee ground emesis yesterday. Went to [facility] where Hb was around 10. No GI services were available so family came to [facility]. Hb 11.5 (baseline around 9.5), MCV 86, Hct 35. BUN 27, Cr 1.0. Decreased fluid and food intake since 2 days. Also endorses melena since 1-2 days. Currently on apirin for CAD/stroke hx. CTAP cholelithiasis, bilateral nonobstructing renal calculi, 14 mm fat- containing umbilical hernia EKG SR -GI consulted, plan for EGD later tpday -IV pantoprazole 40mg BID -ferritin levels -iron pannel -hold blood thinners -type and screen ordered -transfuse if Hb <8 (patient is high risk population due to CAD hx so cuttoff for Hb is 8) #CAD Follows with Dr. Izaguirre. Last stent was placed 1 year ago. Has total of 5 stents after two episodes of [place]. Currently on aspirin, atorvastain, and ezetimibe 10mg. EKG sinus rhythm with rate 92. Troponins negative. -continue asa as noted above -lipid pannel -resume metop, atorvastatin, ezetimibe -hold aspirin secodnary to GI bleed #Migraines No current complaint. Takes topiramate and Fioricet. Insurance not covering [facility] currently. -resume topiramate #Leukocytosis WBC 12.7. No infection source, no fever. Likely reactive in setting of GI bleed. -CTM #Previous CVA Ischemic stroke occured in 2016 while undergoing stent placement. Minimal residual deficits on right upper and lower extremities. Takes atrovastatin 80mg and aspirin 81mg. -hold aspirin 81 secondary to GI bleed Health maintenance: Dispo: tele, EGD in AM FEN: CLD, npo at 10AM DVT prophylaxis: SCD CODE STATUS: Full code Assessment and plan discussed with my attending physician Dr. Santiago and Dr. Damon(PGY-2). Dr. Iqbal (PGY-1) ? president ceo & founder Attending Provider Attestation/Addendum IAde, , attest that I was physically present for the beck portions of the service and evaluated the patient with the resident and I reviewed and discussed the case with the resident and agree with the resident's findings and plans of care as documented above Patient seen and evaluated this Am. Patient states he has not eaten since Saturday due to epigastric pain and nausea. Patient states he has not had any further episodes of coffee ground emesis since admission. Patient had symptomatic anemia on admission with dyspnea on exertion and lightheadedness. However, he states he is feeling well now. Pending EGD this afternoon. No pain on palpation of abdomen, which is soft and non-distended. Will f/u with EGD results and continue with protonix at this time.
[2025-08-17 09:19] LABS: Ferritin 7 ng/mL (10.5-307.3); Iron 9 mcg/dL (65-175); Percent Iron Saturation 3 % (20-55); Total Iron Binding Capacity 285 mcg/dL (250-425); Unsaturated Iron Binding 276 (225-295)
[2025-08-17] MEDS: Magnesium Sulfate 2 GM Ivpb 2 GM/50 ML BAG IV (09:40)
--- NOTE | 2025-08-17 11:50 | PC.SS ---
SS met with patient regarding his d/c plan. Pt is alert/oriented. Pt was admitted for GI Bleed. Pt confirmed demographic and contact information is correct on facesheet. Pt resides with . Pt ambulates independently without assistance or DME. Pt is ok with all ADLs. Patient?s pharmacy of choice is [facility] [address]. Pt named his , Dipti Jensen medical decision maker if he is unable. Patient?s choice is to return home upon d/c. Pt does not have an advance directive, SS offered, and pt declined. Pt states he is not diabetic and is not on dialysis. Pt followed up with PCP 2 months ago. will provide transportation home. D/C plan: Return home Next of Kin: Dipti Jensen, , phone# [phone] PCP: Dr. Dayton Low Address: Correct on facesheet
--- NOTE | 2025-08-17 16:17 | SUR.PHASEI ---
pt received from OR in recovery bay 3. pt asleep but responds to voice, breathing unlabored on room air. v/s stable. report received from Ana Russell.
--- NOTE | 2025-08-17 16:55 | SUR.PHASEI ---
pt asleep but responds to voice, breathing unlabored on room air. v/s stable. report called to Tasha LEES. pt will be transferred to room at this time.
[2025-08-17 17:45] LABS: Basophils # (Auto) 0.1 Thou/mm3 (0.0-0.2); Basophils % (Auto) 1 % (0-2.5); Eosinophils # (Auto) 0.2 Thou/mm3 (0.0-0.5); Eosinophils % (Auto) 4 % (0-10); Hematocrit 27.4 % (41.0-53.0); Immature Granulocytes Auto 0.03 Thou/mm3 (0.00-0.00); Lymphocytes # (Auto) 1.3 Thou/mm3 (1.0-4.8); Lymphocytes % (Auto) 25 % (10-50); Mean Corpuscular HGB Conc 32.1 g/dl (31.0-37.0); Mean Corpuscular Hemoglobin 27.4 pg (25.0-35.0); Mean Corpuscular Volume 85 fL (80-100); Monocytes # (Auto) 0.6 Thou/mm3 (0.0-0.8); Monocytes % (Auto) 11 % (0-12); Neutrophils # (Auto) 3.2 Thou/mm3 (1.8-7.7); Neutrophils % (Auto) 60 % (37-80); Nucleated Red Blood Cell # 0.00 Thou/mm3 (0.00-0.00); Nucleated Red Blood Cell % 0 /100 WBC (0); Platelet Count 210 Thou/mm3 (140-440); RDW Standard Deviation 41.8 fL (35.1-43.9); Red Blood Count 3.21 Miln/mm3 (4.50-5.90); White Blood Count 5.3 Thou/mm3 (3.8-10.6)
[2025-08-17 17:48] LABS: Hemoglobin 8.8 g/dL (13.5-16.0)
[2025-08-17] MEDS: NA SU/NAHCO3/KC/PEG (Golytely) 4,000 ML BTL 4000 ML PO (18:16)
--- NOTE | 2025-08-17 18:25 | PC.NURSE ---
Pt. at bedside and is demanding pt. have a blood transfusion. Pt. hemoglobin 8.8. 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 He has had two heart attacks already and if you wait to give him blood he will have another cardiac event. Dr. Martinez covering for Dr. Rutledge made aware and states I will review patients chart and then come see the patient and family. No further orders at this time.
[2025-08-17] MEDS: ATORVASTATIN CALCIUM 20 MG TABLET 80 MG PO (20:52)
[2025-08-17] MEDS: TOPIRAMATE 25 MG TABLET PO (20:52)
[2025-08-17] MEDS: EZETIMIBE 10 MG TABLET PO (20:53)
[2025-08-17] MEDS: ONDANSETRON INJ 2 MG/ML INJ 2 ML 4 MG IVP (21:59)
[2025-08-18] VITALS (24 sets, daily range): BP systolic 92–131; BP diastolic 58–78; PULSE 65–96; RESP 12–98; TEMP 36–36.8; O2SAT 95–100; BMI 22.2
[2025-08-18 00:09] LABS: Hematocrit 26.5 % (41.0-53.0)
[2025-08-18 00:16] LABS: Hemoglobin 8.5 g/dL (13.5-16.0)
[2025-08-18 05:47] LABS: Basophils # (Auto) 0.1 Thou/mm3 (0.0-0.2); Basophils % (Auto) 1 % (0-2.5); Eosinophils # (Auto) 0.2 Thou/mm3 (0.0-0.5); Eosinophils % (Auto) 4 % (0-10); Hematocrit 26.1 % (41.0-53.0); Immature Granulocytes Auto 0.02 Thou/mm3 (0.00-0.00); Lymphocytes # (Auto) 1.3 Thou/mm3 (1.0-4.8); Lymphocytes % (Auto) 23 % (10-50); Mean Corpuscular HGB Conc 32.6 g/dl (31.0-37.0); Mean Corpuscular Hemoglobin 27.9 pg (25.0-35.0); Mean Corpuscular Volume 86 fL (80-100); Monocytes # (Auto) 0.6 Thou/mm3 (0.0-0.8); Monocytes % (Auto) 11 % (0-12); Neutrophils # (Auto) 3.4 Thou/mm3 (1.8-7.7); Neutrophils % (Auto) 60 % (37-80); Nucleated Red Blood Cell # 0.00 Thou/mm3 (0.00-0.00); Nucleated Red Blood Cell % 0 /100 WBC (0); Platelet Count 201 Thou/mm3 (140-440); RDW Standard Deviation 42.3 fL (35.1-43.9); Red Blood Count 3.05 Miln/mm3 (4.50-5.90); White Blood Count 5.6 Thou/mm3 (3.8-10.6)
[2025-08-18 05:50] LABS: Hemoglobin 8.5 g/dL (13.5-16.0)
[2025-08-18 06:15] LABS: Alanine Aminotransferase 16 U/L (10-49); Albumin, Serum 3.5 gm/dL (3.4-4.8); Albumin/Globulin Ratio 1.9 (1.2-2.2); Alkaline Phosphatase 81 U/L (46-116); Anion Gap 10 (7-16); Aspartate Amino Transferase 21 U/L (0-34); BUN/Creatinine Ratio 15 Ratio (12-20); Bilirubin,Total 0.5 mg/dL (0.3-1.2); Blood Urea Nitrogen 12 mg/dL (9-23); Calcium 8.7 mg/dL (8.3-10.6); Calcium (Corrected) 9.1 mg/dL (8.5-10.1); Carbon Dioxide 25.7 mMol/L (20.0-31.0); Chloride 108 mMol/L (98-107); Creatinine (Component) 0.8 mg/dL (0.6-1.3); Estimated Creatinine Clearance 94.2 mL/min (>60); Globulin 1.8 gm/dL (2.3-3.5); Glucose 98 mg/dL (74-106); Osmolality,Calculated 286 (275-295); Potassium 3.5 mMol/L (3.4-5.1); Sodium 144 mMol/L (136-145); Total Protein 5.3 gm/dL (5.7-8.2); eGFR > 60 See Note
--- NOTE | 2025-08-18 08:17 | ESPR_ITS ---
<Statement entered by Tish Rutledge MD - 08/18/25 21:02> Patient was seen and examined at bedside. I agree on the assessment and plan on this note as documented by resident Dr Dario Carson DO PGY1. 65-year-old male with past medical history as below admitted for GI bleed workup, underwent EGD EGD significant for short segment Tomlinson's esophagus gastritis and large hiatal hernia. Patient and family at bedside requesting additional blood transfusion and IV iron infusion, considering severe iron deficiency anemia and gastritis we will transfuse IV iron and 1 unit PRBC. Patient is scheduled for colonoscopy today. Follow-up colonoscopy results in a.m. Patient is established with hematology outpatient. recommend outpatient follow-up. Case discussed with attending Dr. Ade Calvin MD PGY-2 Documentation for date of: 08/18/25 Subjective Subjective Interval history: EGD(08/17): Short segment Tomlinson's esophagus, , Gastritis, Large hiatal hernia. Source of bleeding unknown. According to patient, patient had a similar problem many years ago and he received EGD and colonoscopy, capsule endoscopy which did not show clear source of bleeding. Patient follows hematology outpatient, and he noted that he has some kind of bone marrow issue and was prescribed iron. Patient is currently pending colonoscopy today will continue to follow-up. After colonoscopy patient will receive 1 units of PRBC infusion and after that ordered iron panel. Exam Vital Signs Temp Pulse Resp BP Pulse Ox O2 Del Method O2 Flow Rate 97.2 F 67 16 115/66 97 Room Air 3 08/18/25 04:00 08/18/25 07:06 08/18/25 07:06 08/18/25 04:00 08/18/25 04:00 08/17/25 17:00 08/17/25 16:10 Narrative Exam General: Alert and oriented x3. No acute distress, cooperative HEENT: NCAT, No JVD noted. Mucosa dry. Pupils are equal and reactive to light bilaterally Cardiovascular: Normal S1 and S2. Tachycardic rate and rhythm. Respiratory: Lungs are clear to auscultation bilaterally. No wheezing or crackles heard. Abdomen: Soft, nontender, not distended, normal bowel sounds. Skin: Warm to touch, dry, no rashes noted Musculoskeletal: No gross injuries. Able to move all 4 extremities. No pitting edema Neuro: Alert and oriented x3. No focal neuro deficits. Psych: Normal affect and mood Objective Labs 08/19/25 04:33 08/19/25 04:33 Labs: Laboratory Results - last 24 hr 08/17/25 08/17/25 08/17/25 01:01 04:30 17:12 WBC 5.3 RBC 3.21 L Hgb 8.8 L Hct 27.4 L MCV 85 MCH 27.4 MCHC 32.1 RDW Std Deviation 41.8 Plt Count 210 Neut % (Auto) 60 Lymph % (Auto) 25 Hand % (Auto) 11 Eos % (Auto) 4 Baso % (Auto) 1 Neut # (Auto) 3.2 Lymph # (Auto) 1.3 Hand # (Auto) 0.6 Eos # (Auto) 0.2 Baso # (Auto) 0.1 Immature Gran # (Auto) 0.03 H Absolute Nucleated RBC 0.00 Immature Gran % 1 H Nucleated RBC % 0 Sodium Potassium Chloride Carbon Dioxide Anion Gap BUN Creatinine Estim Creat Clear Calc eGFR BUN/Creatinine Ratio Glucose Calculated Osmolality Calcium Corrected Calcium Iron 9 L TIBC 285 Iron Saturation 3 L Unsat Iron Binding 276 Ferritin 7 L Total Bilirubin AST ALT Alkaline Phosphatase 81 D Total Protein Albumin Globulin Albumin/Globulin Ratio Triglycerides 169 H Cholesterol 90 L LDL Cholesterol, Calc 32 HDL Cholesterol 24 L Cholesterol/HDL Ratio 3.8 L 08/17/25 08/18/25 23:43 04:27 WBC 5.6 RBC 3.05 L Hgb 8.5 L 8.5 L Hct 26.5 L 26.1 L MCV 86 MCH 27.9 MCHC 32.6 RDW Std Deviation 42.3 Plt Count 201 Neut % (Auto) 60 Lymph % (Auto) 23 Hand % (Auto) 11 Eos % (Auto) 4 Baso % (Auto) 1 Neut # (Auto) 3.4 Lymph # (Auto) 1.3 Hand # (Auto) 0.6 Eos # (Auto) 0.2 Baso # (Auto) 0.1 Immature Gran # (Auto) 0.02 H Absolute Nucleated RBC 0.00 Immature Gran % 0 Nucleated RBC % 0 Sodium 144 Potassium 3.5 Chloride 108 H Carbon Dioxide 25.7 Anion Gap 10 BUN 12 Creatinine 0.8 Estim Creat Clear Calc 94.2 eGFR > 60 BUN/Creatinine Ratio 15 Glucose 98 Calculated Osmolality 286 Calcium 8.7 Corrected Calcium 9.1 Iron TIBC Iron Saturation Unsat Iron Binding Ferritin Total Bilirubin 0.5 AST 21 ALT 16 Alkaline Phosphatase 81 Total Protein 5.3 L Albumin 3.5 Globulin 1.8 L Albumin/Globulin Ratio 1.9 Triglycerides Cholesterol LDL Cholesterol, Calc HDL Cholesterol Cholesterol/HDL Ratio Quality Measures Quality Measures VTE prophylaxis Assessment & Plan Assessment Current Active Medications: Generic Name Dose Route Start Last Admin Trade Name Freq PRN Reason Stop Dose Admin Acetaminophen 650 mg 08/16/25 22:00 Acetaminophen 325 Mg Tablet PO 09/15/25 21:59 Q6H PRN Fever >100.4 or pain 1-3 Atorvastatin Calcium 80 mg 08/17/25 21:00 08/17/25 20:52 Atorvastatin Calcium 20 Mg Tablet PO 09/16/25 20:59 80 mg HS KENNEDY Administration Ezetimibe 10 mg 08/17/25 21:00 08/17/25 20:53 Ezetimibe 10 Mg Tablet PO 09/16/25 20:59 10 mg HS KENNEDY Administration Loratadine 10 mg 08/17/25 20:45 08/17/25 20:52 Loratadine 10 Mg Tablet PO 09/16/25 20:44 10 mg QDAY KENNEDY Administration Metoprolol Succinate 25 mg 08/18/25 09:00 Metoprolol Succinate Xl 25 Mg Tabcr PO 09/17/25 08:59 QDAY KENNEDY Ondansetron HCl 4 mg 08/16/25 22:05 08/17/25 21:59 Ondansetron Inj 2 Mg/Ml Inj 2 Ml IVP 09/15/25 22:04 4 mg Q6H PRN Administration NAUSEA OR VOMITING Protocol Pantoprazole Sodium 40 mg 08/17/25 08:15 08/17/25 20:53 Pantoprazole Inj 40 Mg Vial IVP 09/16/25 08:14 40 mg BID KENNEDY Administration Sennosides 1 tab 08/16/25 22:05 Senna Tablet PO 09/15/25 22:04 QDAY PRN constipation Protocol Topiramate 25 mg 08/17/25 21:00 08/17/25 20:52 Topiramate 25 Mg Tablet PO 09/16/25 20:59 25 mg HS KENNEDY Administration Plan Sterling Jensen is 65 yr male with PMH of CAD s/p 5 stents (2016, 2020), migraines, two ischemic stroke 2017, HTN, HLD, celiac disease, iron deficiency anemia, previous GI bleed presenting to ED due to coffee ground emesis. He had similiar episode last month. GI was consulted. Admitting patient for mgmt of upper GI bleed. #Upper GI bleed #Hematemesis -Has tachycardia and elevated urea supporting dx. One episode of projectile coffee ground emesis yesterday. Went to [facility] where Hb was around 10. No GI services were available so family came to [facility]. Hb 11.5 (baseline around 9.5), MCV 86, Hct 35. BUN 27, Cr 1.0. Decreased fluid and food intake since 2 days. Also endorses melena since 1-2 days. Currently on apirin for CAD/stroke hx. -CTAP cholelithiasis, bilateral nonobstructing renal calculi, 14 mm fat- containing umbilical hernia EKG SR -Reported history of following Dr. Irving outpatient in 2019 and switched to another GI in [place] and now back to [place]. Reported history of sclerotherapy for internal hemorrhoid in 2019, last bright red blood per rectum was last year. -Per patient, history of ulcer in small intestine that required cauterization, Hgb was 4 at that time. Patient also reported a patient has been following Dr. Ma for 6 episodes of feraheme. -EGD(08/17): Short segment Tomlinson's esophagus, Gastritis, Large hiatal hernia. Source of bleeding unknown. -Colonoscopy (08/18/2025): showed Grade 3 internal hemorroids, banded. GI recommended outpatient capsule endoscopy. -08/18: Received 1 units of pRBC transfusion Plan: -IV pantoprazole 40mg BID -ferritin levels -iron pannel -hold blood thinners -type and screen ordered -transfuse if Hb <8 (patient is high risk population due to CAD hx so cuttoff for Hb is 8) -Consulted GI, Dr. Irving, appreciate recommendations. #CAD Follows with Dr. Izaguirre. Last stent was placed 1 year ago. Has total of 5 stents after two episodes of [place]. Currently on aspirin, atorvastain, and ezetimibe 10mg. EKG sinus rhythm with rate 92. Troponins negative. -continue asa as noted above -lipid pannel -resume metop, atorvastatin, ezetimibe -hold aspirin secodnary to GI bleed #Migraines No current complaint. Takes topiramate and Fioricet. Insurance not covering [facility] currently. -resume topiramate #Leukocytosis WBC 12.7. No infection source, no fever. Likely reactive in setting of GI bleed. -CTM #Previous CVA Ischemic stroke occured in 2017 while undergoing stent placement. Minimal residual deficits on right upper and lower extremities. Takes atrovastatin 80mg and aspirin 81mg. -hold aspirin 81 secondary to GI bleed Health maintenance: Dispo: tele, EGD in AM FEN: CLD, npo at 10AM DVT prophylaxis: SCD CODE STATUS: Full code Assessment and plan discussed with my attending physician Dr. Santiago and Dr. Rutledge (PGY-2) Dr. Carson (PGY-1) - Internal medicine resident Attending Provider Attestation/Addendum Ade Ramos, , attest that I was physically present for the beck portions of the service and evaluated the patient with the resident and I reviewed and discussed the case with the resident and agree with the resident's findings and plans of care as documented above Patient seen and evaluated this AM. is at bedside. Patient reports dyspnea on exertion and tachycardia, particularly while he was showering. EGD was also done yesterday revealing esophageal mucosa changes consistent with short-segment Tomlinson's esophagus, gastritis, large hiatal hernia was found. Discussed findings with patient and at bedside. Patient will likely need outpatient follow-up with a surgeon for repair of hiatal hernia. He will also need frequent surveillance for Tomlinson's esophagus. No biopsy was taken otherwise. Since source of bleeding was not found, patient is scheduled for colonoscopy this evening. Patient states that he had been previously receiving Feraheme outpatient due to anemia at the cancer center. Patient has significant iron deficiency anemia. Will give IV Venofer. Moreover, will transfuse 1 unit of PRBCs as patient has symptomatic anemia. Will also monitor closely for volume status due to concern for possible volume overload given patient's history of CAD. Patient is otherwise euvolemic at this time.
--- NOTE | 2025-08-18 08:43 | PC.SS ---
Follow up note: Colonoscopy pending. Pt will return home upon dc.
[2025-08-18] MEDS: METOPROLOL SUCCINATE XL 25 MG TABCR PO (08:47)
[2025-08-18 10:06] LABS: Magnesium 1.9 mg/dL (1.6-2.6)
[2025-08-18] MEDS: Magnesium Sulfate 2 GM Ivpb 2 GM/50 ML BAG IV (10:52)
[2025-08-18] MEDS: SODIUM CHLORIDE 0.9% 500 ML 100 ML 20 ML IV (16:40)
--- NOTE | 2025-08-18 17:10 | SUR.PHASEI ---
pt received to [facility]. vss. breathing even and unlabored. denies pain and nausea. report from nurse jory.
--- NOTE | 2025-08-18 17:40 | SUR.PHASEI ---
report called to tal on tele. vss. breathing even and unlabored. denies pain and nausea. transported to room via gurney.
[2025-08-18] MEDS: IRON SUCROSE CPLX INJ 20 MG/ML VIAL 5 ML 200 MG IVP (18:42)
[2025-08-18 18:45] LABS: Hematocrit 35.1 % (41.0-53.0); Hemoglobin 11.2 g/dL (13.5-16.0)
--- NOTE | 2025-08-18 18:47 | PC.NURSE ---
Called MD to ask for pain meds, pt co of rectal pain
[2025-08-18] MEDS: HYDROcodone/APAP 5/325 TABLET 1 TAB PO (19:55)
[2025-08-18] MEDS: ATORVASTATIN CALCIUM 20 MG TABLET 80 MG PO (20:51)
[2025-08-18] MEDS: TOPIRAMATE 25 MG TABLET PO (20:51)
[2025-08-18] MEDS: EZETIMIBE 10 MG TABLET PO (20:51)
[2025-08-19] VITALS (7 sets, daily range): BP systolic 100–119; BP diastolic 62–74; PULSE 52–104; RESP 8–99; TEMP 36.1–36.5; O2SAT 93–96; BMI 21.5
[2025-08-19 05:27] LABS: Basophils # (Auto) 0.1 Thou/mm3 (0.0-0.2); Basophils % (Auto) 1 % (0-2.5); Eosinophils # (Auto) 0.3 Thou/mm3 (0.0-0.5); Eosinophils % (Auto) 5 % (0-10); Hematocrit 29.8 % (41.0-53.0); Hemoglobin 9.7 g/dL (13.5-16.0); Immature Granulocytes Auto 0.02 Thou/mm3 (0.00-0.00); Lymphocytes # (Auto) 1.4 Thou/mm3 (1.0-4.8); Lymphocytes % (Auto) 22 % (10-50); Mean Corpuscular HGB Conc 32.6 g/dl (31.0-37.0); Mean Corpuscular Hemoglobin 28.0 pg (25.0-35.0); Mean Corpuscular Volume 86 fL (80-100); Monocytes # (Auto) 0.7 Thou/mm3 (0.0-0.8); Monocytes % (Auto) 12 % (0-12); Neutrophils # (Auto) 3.7 Thou/mm3 (1.8-7.7); Neutrophils % (Auto) 60 % (37-80); Nucleated Red Blood Cell # 0.00 Thou/mm3 (0.00-0.00); Nucleated Red Blood Cell % 0 /100 WBC (0); Platelet Count 209 Thou/mm3 (140-440); RDW Standard Deviation 43.0 fL (35.1-43.9); Red Blood Count 3.46 Miln/mm3 (4.50-5.90); White Blood Count 6.2 Thou/mm3 (3.8-10.6)
[2025-08-19 05:49] LABS: Alanine Aminotransferase 13 U/L (10-49); Albumin, Serum 3.8 gm/dL (3.4-4.8); Albumin/Globulin Ratio 1.9 (1.2-2.2); Alkaline Phosphatase 84 U/L (46-116); Anion Gap 10 (7-16); Aspartate Amino Transferase 18 U/L (0-34); BUN/Creatinine Ratio 13 Ratio (12-20); Bilirubin,Total 0.6 mg/dL (0.3-1.2); Blood Urea Nitrogen 12 mg/dL (9-23); Calcium 8.7 mg/dL (8.3-10.6); Calcium (Corrected) 8.9 mg/dL (8.5-10.1); Carbon Dioxide 24.6 mMol/L (20.0-31.0); Chloride 109 mMol/L (98-107); Creatinine (Component) 0.9 mg/dL (0.6-1.3); Estimated Creatinine Clearance 83.7 mL/min (>60); Globulin 2.0 gm/dL (2.3-3.5); Glucose 99 mg/dL (74-106); Magnesium 2.0 mg/dL (1.6-2.6); Osmolality,Calculated 286 (275-295); Potassium 3.9 mMol/L (3.4-5.1); Sodium 144 mMol/L (136-145); Total Protein 5.8 gm/dL (5.7-8.2); eGFR > 60 See Note
[2025-08-19] MEDS: METOPROLOL SUCCINATE XL 25 MG TABCR PO (08:38)
[2025-08-19] MEDS: LIDOCAINE 5% HEMORRHOIDAL CREAM 30 GM TUBE TOP (09:51)
--- NOTE | 2025-08-19 10:35 | PD.IMPROG ---
Documentation for date of: 08/19/25 Subjective Subjective Interval history: Patient evaluated hemoglobin hematocrit down to 9.7 and 29.8 Renal no good reason for the drop in hemoglobin hematocrit I discussed with him and his my future plan that includes Capsule endoscopy at a tertiary center Patient can see me next week in the office as an outpatient Exam Vital Signs Temp Pulse Resp BP Pulse Ox O2 Del Method O2 Flow Rate 96.9 F 94 23 H 119/74 96 Room Air 3 08/19/25 08:00 08/19/25 08:38 08/19/25 08:00 08/19/25 08:38 08/19/25 08:00 08/19/25 08:00 08/18/25 17:02 Objective Labs 08/19/25 04:33 08/19/25 04:33 Labs: Laboratory Results - last 24 hr 08/17/25 08/18/25 08/19/25 01:01 18:20 04:33 WBC 6.2 RBC 3.46 L Hgb 11.2 L D 9.7 L Hct 35.1 L 29.8 L MCV 86 MCH 28.0 MCHC 32.6 RDW Std Deviation 43.0 Plt Count 209 Neut % (Auto) 60 Lymph % (Auto) 22 Finney % (Auto) 12 Eos % (Auto) 5 Baso % (Auto) 1 Neut # (Auto) 3.7 Lymph # (Auto) 1.4 Finney # (Auto) 0.7 Eos # (Auto) 0.3 Baso # (Auto) 0.1 Immature Gran # (Auto) 0.02 H Absolute Nucleated RBC 0.00 Immature Gran % 0 Nucleated RBC % 0 Sodium 144 Potassium 3.9 Chloride 109 H Carbon Dioxide 24.6 Anion Gap 10 BUN 12 Creatinine 0.9 Estim Creat Clear Calc 83.7 eGFR > 60 BUN/Creatinine Ratio 13 Glucose 99 Calculated Osmolality 286 Calcium 8.7 Corrected Calcium 8.9 Magnesium 2.0 Total Bilirubin 0.6 AST 18 ALT 13 Alkaline Phosphatase 84 Total Protein 5.8 Albumin 3.8 Globulin 2.0 L Albumin/Globulin Ratio 1.9 Blood Type A Negative Antibody Screen NEGATIVE Crossmatch See Detail Blood Bank Wristband ID Yes Impressions Impression: Occult GI bleeding Outpatient capsule endoscopy Patient can go home on aspirin and his anticoagulation Assessment & Plan A&P Narrative # Acute GI bleed in the form of melena and possible hematemesis Chronic history of iron deficiency anemia with a previous history of GI bleed from peptic ulcer disease requiring intervention Suggestions Serial CBC IV Protonix Consent obtained for fiberoptic esophagogastroduodenoscopy with possible biopsy possible therapeutic intervention under intravenous moderate sedation scheduled for tomorrow Clear liquid diet till 10 AM tomorrow then n.p.o. Other medical problems include coronary artery disease status post PCI hyperlipidemia thank you very much for the opportunity to participate in the care of this patient Time Spent With Patient Time: Total time spent is greater than 50% in coordination of care (as documented) at patient's floor/unit and/or counseling patient:
--- NOTE | 2025-08-19 13:09 | ESDS_ITS ---
<Statement entered by Ade Santiago DO - 08/20/25 14:33> I, Ade Santiago DO, attest that I was physically present for the beck portions of the service and evaluated the patient with the resident and I reviewed and discussed the case with the resident and agree with the resident's findings and plans of care as documented above <Statement entered by Tish Rutledge MD - 08/19/25 17:54> Patient was seen and examined by me personally. I have reviewed the below documentation by the team resident and agree with its findings. Discharge plan was discussed with the attending, Dr. Ade Calvin MD Internal Medicine, PGY-2 Planned Discharge Date 08/19/25 DS: Providers Provider Date of admission: 08/16/25 22:10 Primary care physician: Dayton Low MD Admitting Provider: Janee Amanda MD Attending Provider on Admission: Ade Santiago DO Consults: 08/16/25 21:29 Consult to Gastroenterology Stat Comment: Consultation for upper GI bleed Consulting Provider: Denise Irving Attending Provider on DC: Dario Carson DO Discharging Provider: Dario Carson DO DS: Diagnosis Problem List Completed Was Problem List Reviewed/Reconciled?: Yes Hospital Course Hospital Course Hospital course: Summary: Sterling Jensen is 65 yr male with PMH of CAD s/p 5 stents (2016, 2020), migraines, two ischemic stroke 2016, HTN, HLD, celiac disease, iron deficiency anemia, previous GI bleed presenting to ED on 08/16/2025 due to coffee ground emesis. He had similiar episode last month. GI was consulted. Admitted patient for mgmt of upper GI bleed. EGD didn't find clear source of bleeding. Colonoscopy found grade 3 internal hemorrhoids, but could not find exact source of his coffeegrond emesis. Patient was stable and discharged on 08/19/2025. ED course: In ED, he was tachycardic 119 but improved with fluids. Other vitals stable. WBC 12.7, Hb 11.5 (baseline around 9.5), MCV 86. BUN 27, Cr 1.0. Troponins negative, EKG sinus rhytm with rate 92. CT A/P benign. GI was consulted. Hospital Course: EGD(08/17) showed Short segment Tomlinson's esophagus, Gastritis, Large hiatal hernia but Source of bleeding could not be found. Colonoscopy (08/18/2025) showed grade 3 Internal hemorrhoids which were banded. GI recommended outpatient capsule endoscopy. Due to low hemoglobin level of 8.5, and history of CAD given 1 units of PRBC infusion and IV iron. Patient also said that he had a similar problem many years ago when he received EGD, colonoscopy, and capsule endoscopy which also did not show clear source of infection. Patient follows hematology outpatient and from which he heard he has some kind of bone marrow issue and was prescribed iron. Based on chart review, he follows Dr. Ma and received 6 episodes of Feraheme. Patient's labs and vitals were stable. Patient was discharged on 08/19/2025. #Hiatal hernia #Short segment Tomlinson's esophagus #Gastritis #Internal hemorrhoids status post banding #Acute on chronic anemia-multifactorial, iron deficiency anemia and anemia secondary to blood loss. #Hematemesis, resolved #CAD, by history #Migraines #Leukocytosis #Previous CVA, by history Instructions: ?You were admitted to the hospital for GI bleed workup, you underwent EGD and colonoscopy, EGD showed short segment Tomlinson's esophagus and a large hiatal hernia. We recommend following up with a general surgeon regarding your hiatal hernia evaluation outpatient. ?Your colonoscopy showed internal hemorrhoids which were banded, follow-up with gastroenterology in 2 weeks, you will also need a capsule endoscopy for which you will need a referral. Use Dubicaine topical for hemmorhoids. ?Continue high-fiber diet indefinitely, maintain adequate hydration take 2 to 3 L of water daily unless instructed otherwise by physician. ?Follow-up with your privacy compliance manager outpatient, you have severe iron deficiency anemia continue iron supplementation and we recommend taking iron supplements with orange juice/vitamin C. ?Follow-up with your automatic maintainer outpatient within 1 to 2 weeks ?Follow-up with your primary care physician within 1 week ?Return to the emergency department if your symptoms worsen Assessment and plan discussed with my attending physician Dr. Santiago and Dr. Rutledge (PGY-2) Dr. Carson (PGY-1) - Internal medicine resident Status at Discharge Overall status at discharge: patient is progressing back to baseline Time Spent with Patient Time attestation: Total time spent providing and/or coordinating discharge services: Time spent: Greater than 30 minutes Exam Vital Signs Temp Pulse Resp BP Pulse Ox O2 Del Method O2 Flow Rate 97.3 F 83 15 117/69 95 Room Air 3 08/19/25 12:00 08/19/25 12:52 08/19/25 12:52 08/19/25 12:00 08/19/25 12:00 08/19/25 12:00 08/18/25 17:02 Narrative Exam General: Alert and oriented x3. No acute distress, cooperative HEENT: NCAT, No JVD noted. Mucosa dry. Pupils are equal and reactive to light bilaterally Cardiovascular: Normal S1 and S2. Tachycardic rate and rhythm. Respiratory: Lungs are clear to auscultation bilaterally. No wheezing or crackles heard. Abdomen: Soft, nontender, not distended, normal bowel sounds. Skin: Warm to touch, dry, no rashes noted Musculoskeletal: No gross injuries. Able to move all 4 extremities. No pitting edema Neuro: Alert and oriented x3. No focal neuro deficits. Psych: Normal affect and mood Discharge Plan Plan Patient Disposition: HOME (Self Care) Patient condition on transfer: Stable Care Plan Goals: ?You were admitted to the hospital for GI bleed workup, you underwent EGD and colonoscopy, EGD showed short segment Tomlinson's esophagus and a large hiatal hernia. We recommend following up with a general surgeon regarding your hiatal hernia evaluation outpatient. ?Your colonoscopy showed internal hemorrhoids which were banded, follow-up with gastroenterology in 2 weeks, you will also need a capsule endoscopy for which you will need a referral. Use Dubicaine topical for hemmorhoids. ?Continue high-fiber diet indefinitely, maintain adequate hydration take 2 to 3 L of water daily unless instructed otherwise by physician. ?Follow-up with your privacy compliance manager outpatient, you have severe iron deficiency anemia continue iron supplementation and we recommend taking iron supplements with orange juice/vitamin C. ?Follow-up with your automatic maintainer outpatient within 1 to 2 weeks ?Follow-up with your primary care physician within 1 week ?Return to the emergency department if your symptoms worsen Prescriptions/Referrals Prescriptions/Med Rec: New ferrous sulfate 325 mg (65 mg iron) tablet 325 mg PO QDAY Qty: 30 0RF ascorbate calcium (vitamin C) 500 mg tablet 500 mg PO QDAY Qty: 30 0RF lidocaine [AneCream5] 5 % cream 1 applic topical BID PRN (Reason: pain) Qty: 14.17 0RF Continued atorvastatin 80 mg tablet 80 mg PO HS Patient Comments: TAKE 1 TABLET BY MOUTH EVERY DAY topiramate 25 mg tablet 25 mg PO HS Patient Comments: TAKE 1 TABLET BY MOUTH EVERY DAY aspirin 81 mg tablet,delayed release (DR/EC) 81 mg PO QDAY Patient Comments: TAKE 1 TABLET BY MOUTH EVERY DAY metoprolol succinate 25 mg tablet extended release 24 hr 25 mg PO QDAY Patient Comments: TAKE 1 TABLET BY MOUTH EVERY DAY ezetimibe 10 mg tablet 10 mg PO HS Patient Comments: TAKE 1 TABLET BY MOUTH EVERY DAY pantoprazole 40 mg Tablet,Delayed Release (Dr/Ec) 40 mg PO QDAY Qty: 30 0RF nitroglycerin 0.4 mg tablet, sublingual 0.4 mg BUCCAL [id number] PRN (Reason: chest pain) Patient Comments: DISSOLVE 1 TABLET UNDER TONGUE EVERY 5MIN NEEDED FOR CHEST PAIN DO NOT EXCEED 3DOSES IN 15MIN Referrals: Dayton Low MD [Primary Care Provider] Denise Irving MD [Physician, Gastroenterology] Patient/Caregiver Discharge Instructions Discharge Activity: activity as tolerated Other Discharge Diet Instructions: peptic ulcer diet/ bland Education Materials: Bleeding Gastrointestinal, Peptic Ulcer, Anemia, Gluten- Free Diet for Celiac Disease, What Is a Hiatal Hernia?, Iron Supplements, Understanding Hemorrhoids, ED Diet, Lolo (Adult) Print Language: Luxembourger Stand Alone Forms: Becki Award Info., Patient Portal Info Letter Discharge Order Discharge Orders: Discharge (Routine); Ordered 08/19/25 Ordered By: Dario Carson Quality Discharge Quality Measures VTE prophylaxis
== END 2025-08-19 14:13 | disposition home or self-care (01) | DRG 347 ==
LOC: SERX 21:03 → SERHOLD 22:11 → S2NX 23:10
PROVIDERS: Nurse Practitioner Family; Specialist; Student in an Organized Health Care Education/Training Program; Admitting Provider Student in an Organized Health Care Education/Training Program; Emergency Provider Emergency Medicine; PCP Internal Medicine; Visit Provider Internal Medicine
PROC: 0DJ08ZZ Inspection of Upper Intestinal Tract, Via Natural or Artificial Opening Endoscopic (ICD-10-PCS; CPT 43239; principal; 2025-08-17 17:30)
PROC: 0DJD8ZZ Inspection of Lower Intestinal Tract, Via Natural or Artificial Opening Endoscopic (ICD-10-PCS; CPT 45378; principal; 2025-08-18 18:00)
DX: K64.2 Third degree hemorrhoids (principal); K29.71 Gastritis, unspecified, with bleeding; D62 Acute posthemorrhagic anemia; K22.89 Other specified disease of esophagus; K44.9 Diaphragmatic hernia without obstruction or gangrene; K22.70 Barrett's esophagus without dysplasia; I25.10 Atherosclerotic heart disease of native coronary artery without angina pectoris; E78.5 Hyperlipidemia, unspecified; K90.0 Celiac disease; I10 Essential (primary) hypertension; G43.909 Migraine, unspecified, not intractable, without status migrainosus; N20.0 Calculus of kidney; K42.9 Umbilical hernia without obstruction or gangrene; K80.20 Calculus of gallbladder without cholecystitis without obstruction; I25.2 Old myocardial infarction; Z86.73 Personal history of transient ischemic attack (TIA), and cerebral infarction without residual deficits; Z87.11 Personal history of peptic ulcer disease; Z95.5 Presence of coronary angioplasty implant and graft; Z79.82 Long term (current) use of aspirin; Z79.899 Other long term (current) drug therapy
CPT/HCPCS: 36415; 74176; 80053; 80061; 81001; 82728; 83540; 83550; 83690; 83735; 84100; 84484; 85014; 85018; 85025; 86850; 86900; 86901; 86923; 93005; 96374; 96375; 96376; 99284; A4649; J1200; J1756; J2250; J2405; J2470; J3010; J3475; J7030; J7999; P9016; A9270

== ENCOUNTER → 2025-09-20 | Outpatient (CLI) | payer OTHER, SELFPAY ==
[2025-09-20 11:20] LABS: Basophils # (Auto) 0.1 Thou/mm3 (0.0-0.2); Basophils % (Auto) 2 % (0-2.5); Eosinophils # (Auto) 0.2 Thou/mm3 (0.0-0.5); Eosinophils % (Auto) 4 % (0-10); Hematocrit 34.5 % (41.0-53.0); Hemoglobin 10.0 g/dL (13.5-16.0); Immature Granulocytes Auto 0.00 Thou/mm3 (0.00-0.00); Lymphocytes # (Auto) 1.0 Thou/mm3 (1.0-4.8); Lymphocytes % (Auto) 22 % (10-50); Mean Corpuscular HGB Conc 29.0 g/dl (31.0-37.0); Mean Corpuscular Hemoglobin 23.3 pg (25.0-35.0); Mean Corpuscular Volume 80 fL (80-100); Monocytes # (Auto) 0.5 Thou/mm3 (0.0-0.8); Monocytes % (Auto) 11 % (0-12); Neutrophils # (Auto) 2.9 Thou/mm3 (1.8-7.7); Neutrophils % (Auto) 62 % (37-80); Nucleated Red Blood Cell # 0.00 Thou/mm3 (0.00-0.00); Nucleated Red Blood Cell % 0 /100 WBC (0); Platelet Count 175 Thou/mm3 (140-440); RDW Standard Deviation 45.5 fL (35.1-43.9); Red Blood Count 4.30 Miln/mm3 (4.50-5.90); White Blood Count 4.8 Thou/mm3 (3.8-10.6)
[2025-09-20 11:39] LABS: Folate 8.48 ng/mL (>5.38); Vitamin B12 463 pg/mL (211-911)
[2025-09-20 11:49] LABS: Ferritin 6 ng/mL (10.5-307.3); Iron 11 mcg/dL (65-175); Percent Iron Saturation 3 % (20-55); Total Iron Binding Capacity 359 mcg/dL (250-425); Unsaturated Iron Binding 348 (225-295)
== END | disposition home or self-care (01) ==
LOC: SCTO 09:31
PROVIDERS: PCP Internal Medicine; Referring Provider Internal Medicine Hematology & Oncology; Visit Provider Internal Medicine Hematology & Oncology
DX: D50.9 Iron deficiency anemia, unspecified (principal)
CPT/HCPCS: 36415; 82607; 82728; 82746; 83540; 83550; 85025